=== PATIENT | female | born 1990 | race Caucasian/White ===

== ENCOUNTER 2020-09-16 10:23 | Emergency (ER) | payer OTHER ==
[~2020-09-16] VITALS: Ht 165.1 cm; Wt 101.6 kg
--- NOTE | 2020-09-16 10:42 | NUR ---
[id number] GLF C/O LOW BACK PAIN. AMB ON SEEN PER EMS, TO ER BED 12, HOOKED TO MONITOR. CHANGED TO HOSP GOWN, WARM BLANKET PROVIDED, PATIENT AAO x 4, NAD NOTED. DR HERRERA AT BEDSIDE.
[2020-09-16] MEDS ORDERED: IBUPROFEN 600 MG TABLET PO ONE (11:00)
[2020-09-16] MEDS ORDERED: IBUPROFEN 600 MG TABLET ONE (12:02)
[2020-09-16] MEDS ORDERED: IBUP-1957 PO (12:24)
--- NOTE | 2020-09-16 12:41 | NUR ---
Patient discharged to home in stable condition. Written and verbal after care instructions given. Patient verbalizes understanding of instruction.
[2020-09-16 12:43] VITALS: BP 122/80
== END 2020-09-16 12:44 | disposition home or self-care (01) ==
LOC: ER 10:27
DX: M54.5 Low back pain (principal); F31.9 Bipolar disorder, unspecified; Z90.89 Acquired absence of other organs; W18.39XA Other fall on same level, initial encounter; Y93.89 Activity, other specified; Y92.89 Other specified places as the place of occurrence of the external cause; Y99.8 Other external cause status
CPT/HCPCS: 72110-TC